=== PATIENT | female | born 1960 | race Caucasian/White ===

== ENCOUNTER 2023-03-05 05:36 | Day surgery (SDC) | payer OTHER ==
[2023-03-05] VITALS (24 sets, daily range): BP systolic 104–170; BP diastolic 68–94
[~2023-03-05] VITALS: Ht 172.7 cm; Wt 101.2 kg
[~2023-03-05 05:36] MED LIST: CAPHYD PO; DIPH12.5EL PO; Diflucan150 MG PO; HYDCHL25 PO; LAMICTAL5 MG PO; LISI5 PO; Micro-K10 MEQ PO; OMEP40CA12 PO; Percocet 5-3251 EACH PO; SYMBICORT 160-4.6 GM INH; ZOCOR20 MG PO
--- NOTE | 2023-03-05 07:31 | NUR ---
Ambulatory in Day Surgery WITH SOME DIFFICULTY WALKING, GAIT NOT STEADT. Surgical site prepped with 2% Chlorhexidine cloth wipe. History, Chart, Medications and Allergies reviewed before start of procedure. Lungs clear T/O to Auscultation. Patient confirms NPO status and agrees with scheduled surgery. Pre-Op teaching done. Pt verbalizes understanding. BELONGINGS INCLUDING PURSE PLACED UNDER BED. PATIENT REMOVED WEDDING RING AND WATCH AND PLACED THEM IN PURSE.
[2023-03-05] MEDS ORDERED: ZYRTEC10 M2 PO (14:44)
[2023-03-05] MEDS ORDERED: BENADRYL25 MG PO (14:47)
--- NOTE | 2023-03-05 15:22 | NUR ---
SHIFT SUMMARY: POD 0 RIGHT TOTAL HIP PATIENT IS A&OX4. VS ARE WNL AND IS ON 2L NC ONLY FOR WHEN SHE FALLS ASLEEP BUT OTHERWISE IS >90% ON RA WHILE AWAKE. PATIENT DENIES PAIN BUT HAS BEEN GIVEN IV TORADOL AND TYLENOL THAT IS SCHEDULED. HER RIGHT HIP HAS GAUZE WITH FOAM TAPE THAT IS C/D/I. DENIES NUMBNESS OR TINGLING. SHE IS A SBA WITH FWW AND GAIT BELT TO THE BATHROOM. PATIENT IS SITTING UP IN THE RECLINER WITH CALL LIGHT IN REACH. PHYSICAL THERAPY IS ABOUT TO HEAD INTO HER ROOM FOR THE FIRST TIME TO EVALUATE HER.
--- NOTE | 2023-03-05 15:22 | NUR ---
THIS NURSE GOT REPORT FROM DONATO AND IS TAKING OVER CARE.
--- NOTE | 2023-03-05 16:08 | NUR ---
Pt. is resting in her recliner, but responds when I enter the room. Pt. is pleasant and rapport is established rather quickly. Facilitated a life review and discussed matters of doni and belief. Pt. displayed evidence of being somnilent, so this unloading checker kept the visit short. Prayed with Pt. Pt. verbalized gratitude for the spiritual care visit.
[2023-03-06 03:34] VITALS: BP 133/71
[2023-03-06 04:49] LABS: BASOPHILS ABSOLUTE AUTO 0.03 K/mm3 (0.00-0.23); BASOPHILS PERCENT AUTO 0 % (0-2); EOSINOPHILS ABSOLUTE AUTO 0.12 K/mm3 (0.00-0.68); EOSINOPHILS PERCENT AUTO 2 % (0-6); Hemoglobin 11.3 g/dL (11.5-16.0); IMMATURE GRAN ABSOLUTE AUTO 0.03 K/mm3 (0.00-0.10); IMMATURE GRAN PERCENT AUTO 0 % (0-1); LYMPHOCYTES ABSOLUTE AUTO 2.24 K/mm3 (0.84-5.20); LYMPHOCYTES PERCENT AUTO 28 % (21-46); MONOCYTES ABSOLUTE AUTO 0.67 K/mm3 (0.16-1.47); MONOCYTES PERCENT AUTO 8 % (4-13); Mean Corpuscular HGB 27.2 pg (26.0-34.0); Mean Corpuscular HGB Conc 31.4 g/dL (31.5-36.5); Mean Corpuscular Volume 87 fL (80-100); Mean Platelet Volume 11.4 fL (9.1-12.4); NEUTROPHILS ABSOLUTE AUTO 4.89 K/mm3 (1.96-9.15); NEUTROPHILS PERCENT AUTO 61 % (41-73); Platelet Count 189 K/mm3 (150-400); RDW Coefficient Variation 14.7 % (11.7-14.2); RDW Standard Deviation 47.4 fL (35.1-46.3); Red Blood Cell Count 4.16 M/mm3 (3.80-5.20); White Blood Cell Count 7.98 K/mm3 (4.00-11.30)
--- NOTE | 2023-03-06 04:57 | NUR ---
SHIFT SUMMARY POD1 RIGHT TKA. SENSATION AND CIRCULATION REMAIN INTACT. DRESSING IS C/D/I. VSS. PT SLEPT ON AND OFF T/O THE NIGHT. PT WAS ABLE TO AMBULATE TO THE BATHROOM MULTIPLE TIMES T/O THE NIGHT, VOIDING W/O ISSUES. TOLLERATING PO INTAKE. PT AMBULATED IN THE SMITH ONCE. MEDICATE FOR PAIN WITH SCHEDULED AND ONCE WITH OXY. NO ACUTE EVENTS NOTED T/O THE NIGHT. PLAN FOR PT TO WORK WITH PT AND D/C HOME TODAY. THE PATIENT IS CURRENTLY RESTING, IN NO DISTRESS, CALL LIGHT IN REACH
[2023-03-06 05:32] LABS: Bun/Creatinine Ratio 27.2 (12.0-20.0); Calcium, Blood 8.2 mg/dL (8.5-10.1); Creatinine, Blood 0.92 mg/dL (0.40-1.00); Magnesium, Blood 1.9 mg/dL (1.6-2.4); Potassium, Blood 3.6 mmol/L (3.5-5.5)
[2023-03-06 07:18] VITALS: BP 150/70
--- NOTE | 2023-03-06 12:00 | NUR ---
DISCHARGE SUMMARY A&OX4. POD 1 R TKA. AQUACEL DRESSING C/D/I. VS WNL, O2 SAT >95% ON RA. ALL LINES REMOVED. EDUCATION PROVIDED, PT WILL FOLLOW UP WITH IN 2 WEEKS. DISCHARGED VIA WHEELCHAIR TO POV.
== END 2023-03-06 11:10 | disposition home or self-care (01) ==
LOC: ORSCMMR 05:36 → ORD 07:30 → ORSCMMR 07:30 → SURS 11:32 → ORSCMMR 03-06 11:10
PROVIDERS: Orthopaedic Surgery
PROC: 0SRC0J9 Replacement of Right Knee Joint with Synthetic Substitute, Cemented, Open Approach (ICD-10-PCS; principal; 2023-03-05 07:30)
DX: M17.0 Bilateral primary osteoarthritis of knee (principal); Z87.891 Personal history of nicotine dependence; E78.5 Hyperlipidemia, unspecified; I10 Essential (primary) hypertension; Z79.899 Other long term (current) drug therapy
CPT/HCPCS: 36415; 73560-RT; 80048; 83735; 85025; 97110; 97116; 97162; A9270; C1713; C1776; J0171; J0690; J0735; J1170; J1885; J2060; J2250; J2704; J2795; J3010; J7120

== ENCOUNTER 2024-08-03 06:41 | Day surgery (SDC) | payer OTHER ==
[~2024-08-03] VITALS: Ht 166 cm; Wt 118.6 kg
[~2024-08-03 06:41] MED LIST changes: +BENADRYL25 MG PO; +KLOR-CON M1010 MEQ PO; +LAMO100 PO; +Lactated Ringer's 1,000 ML IV SCH; +ZYRTEC10 M2 PO
[2024-08-03] MEDS ORDERED: ROSUVASTATIN CA10 MG PO (07:32)
[2024-08-03] MEDS ORDERED: ESCI10 PO (07:33)
[2024-08-03 07:44] VITALS: BP 149/81
--- NOTE | 2024-08-03 07:57 | NUR ---
History, Chart, Medications and Allergies reviewed before start of procedure. Patient up to Ambulate independently. Gait steady. Pre-Op teaching done. Pt verbalizes understanding. Patient confirms NPO status and agrees with scheduled surgery. Patient states colon prep results clear with occasional sediments. Patient States Post-Procedure ride home has been arranged.
[2024-08-03] MEDS ORDERED: propofoL 40 ML IV ONE (08:00)
[2024-08-03] MEDS ORDERED: Benzocaine Oral Spray 0.5ML UD ONE (08:12)
[2024-08-03 08:54] LABS: Bun/Creatinine Ratio 15.6 (12.0-20.0); Calcium, Blood 9.3 mg/dL (8.5-10.1); Creatinine, Blood 0.9 mg/dL (0.40-1.00); Potassium, Blood 3.3 mmol/L (3.5-5.5)
[2024-08-03] MEDS ORDERED: Lactated Ringer's 1,000 ML IV ONE (09:07)
[2024-08-03] MEDS ORDERED: Midazolam HCl 1MG / ML 2ML Vial ONE (09:11)
[2024-08-03] MEDS ORDERED: FentaNYL Citrate 50 MCG/ML 2 ML Injection ONE (09:11)
--- NOTE | 2024-08-03 09:58 | NUR ---
08/03/24 0958 Leticia Pastrana MONITOR INTACT WITH CONTINUOUS PULSE OXIMETRY, CONTINUOUS END TITAL CO2, AND INTERMITTENT BLOOD PRESSURE AND EKG. ANESTHESIA PER DR. FOFANA.
[2024-08-03 10:00] VITALS: BP 111/99
--- NOTE | 2024-08-03 10:13 | NUR ---
DR FRITZ AWARE OF ELEVATED BP, OKAY FOR PT TO GO HOME TO TAKE PRESCRIBED BP MEDICATION THAT SHE SKIPPED THIS AM LONG ASYMPTOMATIC. PT STATES SHE DOES NOT HAVE BLURRED VISION, HEADACHE, OR DIZZINESS
[2024-08-03 10:15] VITALS: BP 151/87
--- NOTE | 2024-08-03 10:44 | NUR ---
Discharged via wheelchair to private car for ride home.
== END 2024-08-03 10:40 | disposition home or self-care (01) ==
LOC: ORSCMMR 06:41 → ORD 08:00 → ORSCMMR 08:00
PROVIDERS: Internal Medicine Gastroenterology; Specialist
PROC: 0DBM8ZX Excision of Descending Colon, Via Natural or Artificial Opening Endoscopic, Diagnostic (ICD-10-PCS; principal; 2024-08-03 08:00)
PROC: 0DB48ZX Excision of Esophagogastric Junction, Via Natural or Artificial Opening Endoscopic, Diagnostic (ICD-10-PCS; principal; 2024-08-03 08:00)
PROC: 0DBL8ZX Excision of Transverse Colon, Via Natural or Artificial Opening Endoscopic, Diagnostic (ICD-10-PCS; principal; 2024-08-03 08:00)
PROC: 0DB58ZZ Excision of Esophagus, Via Natural or Artificial Opening Endoscopic (ICD-10-PCS; principal; 2024-08-03 08:00)
PROC: 0DBN8ZX Excision of Sigmoid Colon, Via Natural or Artificial Opening Endoscopic, Diagnostic (ICD-10-PCS; principal; 2024-08-03 08:00)
DX: K21.00 Gastro-esophageal reflux disease with esophagitis, without bleeding (principal); K22.2 Esophageal obstruction; K44.9 Diaphragmatic hernia without obstruction or gangrene; Z12.11 Encounter for screening for malignant neoplasm of colon; Z86.0101 Personal history of adenomatous and serrated colon polyps; D12.3 Benign neoplasm of transverse colon; K63.5 Polyp of colon; I10 Essential (primary) hypertension; E78.00 Pure hypercholesterolemia, unspecified; E66.01 Morbid (severe) obesity due to excess calories; Z68.41 Body mass index [BMI] 40.0-44.9, adult; Z85.53 Personal history of malignant neoplasm of renal pelvis; Z79.899 Other long term (current) drug therapy; Z87.891 Personal history of nicotine dependence
CPT/HCPCS: 36415; 80048; 88305; A9270; J2250; J2704; J3010; J7120